=== PATIENT | male | born 1980 | race Caucasian/White ===

== ENCOUNTER 2019-01-16 23:08 | Emergency (ER) | payer SELFPAY ==
[~2019-01-16] VITALS: Ht 165.1 cm; Wt 74.8 kg
[2019-01-16 23:15] VITALS: BP 140/90
--- NOTE | 2019-01-16 23:30 | NUR ---
PT AMBULATED TO BED 3.
--- NOTE | 2019-01-16 23:30 | NUR ---
38 Y/O MALE PRESENTS TO ED WITH C/O RUQ ABD PAIN X1 HR AFTER INGESTING LARGE AMOUNTS OF SPICY FOOD AT HOME. PT STATES ON EMPTY STOMACH. ATE TAPATIO AND FIRE HOT CHIPS. PT ALSO C/O FREQUENT RUQ ABD PAIN AFTER INGESTING SPICY FOOD. DRANK X2 CUPS OF MILK AT HOME. PT STATES PAIN AT HOME WAS 10/10. UPON ED ARRIVAL PAIN IS 5/10 AND SUBSIDING. ABD SOFT AND NON-TENDER. X4 QUADRANT BOWEL SOUNDS PRESENT. NO N/V/D. VSS. POSITIONED IN BED FOR COMFORT. ER MD AWARE. CONTINUE TO MONITOR.
--- NOTE | 2019-01-16 23:58 | NUR ---
Dr. Elliott evaluating patient at bedside.
[2019-01-17] MEDS ORDERED: DICYCLOMINE HCL LIQUID 20 MG, ALUMINUM HYD/MAG/SIMETHICONE 30 ML, LIDOCAINE VISCOUS 2% ... PO ONE ×3 (00:10)
[2019-01-17 01:43] VITALS: BP 111/68
--- NOTE | 2019-01-17 01:43 | NUR ---
DISCHARGE PAPERS GIVEN TO PT. STATES NO LONGER HAS ABD PAIN OR DISCOMFORT. 0/1O PAIN WITH VSS. NO N/V. RX OF MYLANTA GIVEN. SIDE EFFECTS EXPLAINED. INSTRUCTED TO F/U WITH PCP AND WHEN TO RETURN TO ER. PT VERBALLIZED UNDERSTANDING OF DC INSTRUCTIONS. ALL QUESTIONS ANSWERED.
== END 2019-01-17 01:43 | disposition home or self-care (01) ==
LOC: MED 23:08
DX: R10.13 Epigastric pain (principal); Z98.890 Other specified postprocedural states
CPT/HCPCS: 81002; 81025; 99282